=== PATIENT | male | born 1990 | race African-American/Black ===

== ENCOUNTER 2023-01-15 10:19 | Emergency (ER) | payer OTHER ==
[~2023-01-15] VITALS: Ht 170.2 cm; Wt 79.6 kg
[2023-01-15] MEDS ORDERED: METOCLOPRAMIDE INJ 10MG/2ML VIAL IV ONE (11:25)
[2023-01-15] MEDS ORDERED: ACETAMINOPHEN 500 MG TAB PO ONE (11:25)
[2023-01-15] MEDS ORDERED: KETOROLAC 30 MG/ML 1ML VIAL IV ONE (11:25)
[2023-01-15] MEDS ORDERED: NS 1,000 ML IV ONE (11:25)
[2023-01-15 12:37] VITALS: BP 124/76
== END 2023-01-15 12:43 | disposition home or self-care (01) ==
LOC: M ED 10:19
DX: G43.909 Migraine, unspecified, not intractable, without status migrainosus (principal)
CPT/HCPCS: 96374; 96375; 99284; J1885; J2765

== ENCOUNTER → 2023-02-01 | Outpatient (CLI) | payer OTHER | LOC: M PLAIMG 10:18 | PROVIDERS: ATTEND Nurse Practitioner Family | DX: M54.16 Radiculopathy, lumbar region (principal) ==

== ENCOUNTER → 2023-06-23 | Outpatient (REF) | LOC: M PLAIMG 10:49 | PROVIDERS: ATTEND Internal Medicine | DX: R06.02 Shortness of breath (principal) ==